=== PATIENT | male | born 1945 | race Caucasian/White ===

== ENCOUNTER 2016-11-25 14:31 | Inpatient (IN) | payer MEDICARE, BC ==
--- NOTE | ~2016-11-25 | CN ---
Consultation Report [facility] [address] [place]. [address] NAME: MADELAINE BANKS : 47 STATUS : ADM IN [facility]#: [id number] AGE: 70 ADM/REG DATE : 11/25/16 MR#: [id number] REPORT SERV DATE: 11/29/16 DICTATED BY: ENRIQUE GRIMM III DATE: 11/29/16 REPORT STATUS : Draft TRANSCRIBED BY: MODNataliya DATE: 11/29/16 CONSULTATION DATE OF CONSULTATION: REASON: Urinary retention. HISTORY OF PRESENT ILLNESS: Mr. Banks is a 70-year-old white male admitted to the hospital following a laparoscopic appendectomy for ruptured appendix. He has been unable to void postoperatively, attempts at catheterization by the staff were unsuccessful. I was asked to see the patient for Henry catheterization. PAST MEDICAL HISTORY: End-stage renal disease, cardiac arrhythmias. PAST SURGICAL HISTORY: Defibrillator placement, AV graft, umbilical hernia repair, cataract surgery. FAMILY HISTORY: Noncontributory. SOCIAL HISTORY: Negative for tobacco or alcohol. HOME MEDICATIONS: Reviewed. ALLERGIES: NO KNOWN DRUG ALLERGIES. PHYSICAL EXAMINATION: The patient is awake, there was blood at the urethral meatus, some. ASSESSMENT: Difficulty Henry placement. PLAN: We will take him to the operating room for cystoscopy and Henry placement. PH/MODNataliya Enrique Grimm III, M.D. / [id number] CC: MD Manish Cool M.D.
--- NOTE | ~2016-11-25 | OP ---
Record Of Operation [facility] [address] [place]. [address] NAME: MADELAINE BANKS : 47 STATUS : ADM IN [facility]#: [id number] AGE: 70 ADM/REG DATE : 11/25/16 MR#: [id number] REPORT SERV DATE: 11/29/16 DICTATED BY: ENRIQUE GRIMM III DATE: 11/29/16 REPORT STATUS : Draft TRANSCRIBED BY: MODL DATE: 11/29/16 DATE OF PROCEDURE: PREOPERATIVE DIAGNOSIS: Difficult Henry placement. POSTOPERATIVE DIAGNOSIS: Urethral stricture. PROCEDURE: Cystoscopy and urethral dilation. SURGEON: Enrique Grimm M.D. ANESTHESIA: General. SPECIMENS: None. DRAIN: 20-German [place]-tip catheter. INDICATION: Mr. Banks is a 70-year-old white male with postoperative urinary retention. The consent has been obtained for cystoscopy and possible urethral dilation. PROCEDURE: After consent was obtained, the patient was identified and was taken to the OR, and put to sleep. He was positioned in the low lithotomy position and prepped and draped in the usual fashion. The 20-German cystoscope was made ready and inserted into the urethral meatus along the course of the urethra. There was noted to be a false passage and there was a very small lumen noted at the 6 o'clock position consistent with a urethral stricture. I was able to pass a wire through this and into the bladder. The العلي sounds were then used to dilate from 16-German to 24-German. A 20-German cystoscopy was then performed. The prostatic urethra was opened. The bladder was trabeculated, consistent with chronic obstruction. The scope was removed. A [place] tip catheter was then advanced over the wire and into the bladder. The balloon was inflated to 10 mL. The wire was removed. The Henry was hooked up to gravity drainage. The patient was awakened and taken to recovery in stable condition. PH/MODL Enrique Grimm III, M.D. / [id number] CC: MD Manish Cool M.D.
--- NOTE | ~2016-11-25 | OP ---
Record Of Operation [facility] [address] [place]. [address] NAME: MADELAINE BANKS : 47 STATUS : ADM IN [facility]#: [id number] AGE: 70 ADM/REG DATE : 11/25/16 MR#: [id number] REPORT SERV DATE: 11/27/16 DICTATED BY: BERNABE KIMBALL DATE: 11/26/16 REPORT STATUS : Draft TRANSCRIBED BY: MODL DATE: 11/26/16 DATE OF PROCEDURE: 11/26/2016 PREOPERATIVE DIAGNOSIS: Acute appendicitis. POSTOPERATIVE DIAGNOSIS: Perforated appendicitis. PROCEDURE: Laparoscopic appendectomy. SURGEON: Bernabe Kimball MD. CHIEF RESIDENT: Isael Rosenbaum MD. ANESTHETIC: General with local. IV FLUIDS: 300 mL. ESTIMATED BLOOD LOSS: 25 mL. COMPLICATIONS: None known. COUNTS: Correct. SPECIMEN: Appendix. DESCRIPTION OF PROCEDURE: The patient was brought to the operating room and placed supine on the operating table. Anesthetic was administered. Endotracheal intubation was achieved. The abdomen was prepped and draped in standard sterile fashion. A time-out was held. Incision was made in vertical fashion few centimeters above the umbilicus. Optiview technique was used to gain access to the intraabdominal space. Pneumoperitoneum was established and laparoscope was inserted. Intraabdominal contents were inspected. The patient was placed in the head down and rolled to left position. Two 5-mm trocars were placed, one in the right upper quadrant and one in the lower midline. Blunt dissection was used to dissect the colon from the anterior abdominal wall and identified the appendix. This was further bluntly dissected from the surrounding fatty tissues. This was mobilized from the sidewall with blunt and sharp dissection. The appendiceal base was identified and a window was created at this base. Of note, prior to dissection, there was necrotic segment at the base that had a perforation. Once adequate defect was made at the base of the appendix, endoscopic stapler was inserted and the staple line was fired across the appendix below the perforated point. Next, the mesoappendix was divided with two-endoscopic staple loads and the specimen was placed in an Endopouch. Irrigation and drainage were conducted. A 19 round [place] drain was placed through the lower midline incision in the pelvis and right lower quadrant. This was secured with 2-0 nylon. The appendix was removed through the supraumbilical incision and passed off as specimen. The 12-mm incision was closed at the fascia level with 0 Vicryl and UR-6, and all incisions were closed with 4-0 Monocryl in subcuticular fashion. Sterile bandages were applied. The patient was extubated and Record Of Operation [facility] [address] [place]. [address] NAME: MADELAINE BANKS : 47 STATUS : ADM IN [facility]#: [id number] AGE: 70 ADM/REG DATE : 11/25/16 MR#: [id number] REPORT SERV DATE: 11/27/16 DICTATED BY: BERNABE KIMBALL QUINN DATE: 11/26/16 REPORT STATUS : Draft TRANSCRIBED BY: MOY DATE: 11/26/16 transferred to the recovery room in stable condition. DICTATED BY: Isael Rosenbaum MD ND/MOY Bernabe Kimball MD / [id number] CC: MD Manish Cool M.D.
--- NOTE | ~2016-11-25 | DS ---
Discharge Summary [facility] [address] [place]. [address] NAME: MADELAINE BANKS : 47 STATUS : DIS IN PAT#: [id number] AGE: 70 ADM/REG DATE : 11/25/16 MR#: [id number] REPORT SERV DATE: 12/11/16 DICTATED BY: BERNABE KIMBALL DATE: 12/10/16 REPORT STATUS : Draft TRANSCRIBED BY: MODNataliya DATE: 12/10/16 Data Collection from hospitalization DISCHARGE DIAGNOSIS(ES): 1. Acute perforated appendicitis. 2. Urethral stricture with difficult Henry placement. 3. End-stage renal disease. 4. Heart disease. CONSULTATIONS: Enrique Lewis M.D. PROCEDURES PERFORMED: 1. CT of the abdomen and pelvis without contrast, 11/25/2016. 2. Laparoscopic appendectomy, 11/26/2016. 3. Cystoscopy and urethral dilation, 11/27/2016. PATHOLOGY: Appendix appendectomy, suppurative appendicitis with peritonitis. MEDICATIONS: Lipitor 40 mg at bedtime, Coreg 6.25 mg twice daily, Dulcolax 5 mg twice daily, Colace 100 mg twice daily, Imdur 30 mg daily, Demadex 20 mg daily, and [place] 5/325 one or two every six hours as needed. CONDITION AT DISCHARGE: Upon discharge, he did appear to be doing well and had no complaints. DISPOSITION: He had been discharged home to continue a regular diet with activity as discussed. He was to follow up with myself in two weeks and was to call for the appointment. He was also to call Dr. Enrique Lewis for a followup appointment. HOSPITAL COURSE: This 70-year-old male had a myocardial infarction less than one year ago. He was status post defibrillator placement and end-stage renal disease. He was planning to start hemodialysis soon. He presented with a one-day history of abdominal pain. Initially, he had nausea and vomiting and then developed right-sided abdominal pain that progressively worsened. It was associated with fever, chills, diarrhea, and diaphoresis. He had no prior episodes. He had an umbilical hernia repair with mesh several years ago as well as cataract surgery. Within the last few months, his left upper extremity AV graft was created and this had subsequently failed. He was having no worsened shortness of breath or dyspnea on exertion. He denied any recent angina, and he had no orthopnea. He was admitted for further evaluation and treatment. Upon admission to the hospital, he had been placed on an n.p.o. diet. He did undergo the above CT of the abdomen and pelvis on the day of admission. He had tolerated this well and was transferred back to his room. Following the day of admission, his temperature was at 99.3, and his vital signs were stable. Surgery had been discussed with the patient. He was agreeable to proceed. He was then taken to the operating room where he did undergo the above laparoscopic appendectomy. He had tolerated this well and was transferred to the recovery room. On postop day #1, he was noted to have had a temperature up to 100, and his vital signs had remained stable. He was continued on antibiotics. His abdomen was noted to be soft and distended. He was also noted to be mildly diaphoretic. He was noted to have some urinary retention, and a bladder scan had Discharge Summary [address] [address] NAME: MADELAINE BANKS : 47 STATUS : DIS IN PAT#: [id number] AGE: 70 ADM/REG DATE : 11/25/16 MR#: [id number] REPORT SERV DATE: 12/11/16 DICTATED BY: BERNABE KIMBALL DATE: 12/10/16 REPORT STATUS : Draft TRANSCRIBED BY: MOY DATE: 12/10/16 revealed 400 mL. He was therefore seen in consultation by Dr. Enrique Lewis in regard to his urinary retention and he had recommended the patient undergo a cystoscopy and Henry placement and he was in agreement with this. He was then taken to the operating room where he did undergo the above cystoscopy with urethral dilation and Henry catheter placement. He had tolerated this well and was transferred to the recovery room. On 11/28/2016, he did appear to be doing well and had tolerated liquids and solids without difficulty. His pain control was improved as well. He was afebrile, and his vital signs had remained stable. He was encouraged to ambulate. He was continued on antibiotics. On postop day #2, he was noted to have poor pain control. He was begun on Colace. He also had a poor appetite noted. Some adjustments were made in his medications. His Henry catheter was to be left in place for seven days. On 11/30/2016, he had no acute events noted. He was afebrile, and his vital signs had remained stable. He had been given a Dulcolax suppository. He was continued on supportive care. His abdomen was noted to be mildly distended. On 12/01/2016, he did appear to be doing well and was noted to have a small bowel movement with suppository. Clinically, he was felt to be improving. He did continue to do well and was then discharged on 12/03/2016 with the above instructions. Information collected by: Sandeep Fam. I submit the above information as my discharge summary. RW/MODL Bernabe Kimball MD / [id number] CC: MD Manish Cool M.D. Paul Henson III, M.D.
--- NOTE | ~2016-11-25 | HP ---
History And Physical [address] [place]. [address] NAME: MADELAINE BANKS : 47 STATUS : DIS IN PAT#: [id number] AGE: 70 ADM/REG DATE : 11/25/16 MR#: [id number] REPORT SERV DATE: 12/09/16 DICTATED BY: BERNABE KIMBALL DATE: 11/26/16 REPORT STATUS : Draft TRANSCRIBED BY: MODL DATE: 11/26/16 DATE OF ADMISSION: 11/25/2016 REPORT TITLE: Consult Note CONSULT SERVICE: General Surgery. REASON FOR CONSULTATION: Appendicitis. HISTORY OF PRESENT ILLNESS: This patient is a 70-year-old male with myocardial infarction less than 1 year ago, who is status post defibrillator placement and end-stage renal disease, who is planning to start hemodialysis soon, presents with a one-day history of abdominal pain. Initially, he had nausea and vomiting, and then developed right-sided abdominal pain that progressively worsened. It is associated with fevers, chills, diarrhea, and diaphoresis. He has had no prior episodes. He had an umbilical hernia repair with mesh several years ago as well as cataract surgery. Within the last few months, the left upper extremity AV graft was created and this has subsequently failed. He is having no worsened shortness of breath or dyspnea on exertion. He denies any recent angina. He has no orthopnea. PAST MEDICAL HISTORY: As above. PAST SURGICAL HISTORY: 1. Umbilical hernia repair. 2. Cataract surgery. 3. Left upper extremity AV fistula creation and infection. FAMILY HISTORY: Noncontributory. SOCIAL HISTORY: No tobacco or alcohol use. MEDICATIONS: Reviewed in the chart. ALLERGIES: NO KNOWN DRUG ALLERGIES. REVIEW OF SYSTEMS: A 12-point review of systems was conducted and is negative, except as per HPI. PHYSICAL EXAMINATION: GENERAL: Awake, alert, and oriented x3, in no acute distress. HEENT: Normocephalic, atraumatic. Pupils are equal, round, and reactive to light. Extraocular movements intact. Moist mucous membranes. NECK: Trachea is in the midline. CHEST: Clear to auscultation bilaterally, except decreased in the left lower lobe. ABDOMEN: Obese, distended, exquisitely tender to palpation in the right lower quadrant at McBurney's point. History And Physical [address] [place]. [address] NAME: MADELAINE BANKS : 47 STATUS : DIS IN PAT#: [id number] AGE: 70 ADM/REG DATE : 11/25/16 MR#: [id number] REPORT SERV DATE: 12/09/16 DICTATED BY: BERNABE KIMBALL DATE: 11/26/16 REPORT STATUS : Draft TRANSCRIBED BY: MODL DATE: 11/26/16 RECTAL: Deferred. GENITALIA: Deferred. EXTREMITIES: Moves all. No edema. NEUROLOGIC: Grossly intact. IMAGING: CT of the abdomen and pelvis demonstrates periappendiceal inflammation with a dilated appendix and appendicolith at the base. PERTINENT LABORATORY DATA: White blood cell count 14.8, hematocrit 32, creatinine 4.7. ASSESSMENT AND PLAN: This patient has acute appendicitis in the setting of end-stage renal disease and heart disease. We will plan to admit him with IV fluid resuscitation and antibiotics initially and plan for appendectomy in the morning. We discussed his code status in totality, he wished to remain a full code. The risks, alternatives, and benefits of appendectomy were reviewed and this included, but was not limited to , thromboembolic event, infection, bleeding, injury to other organs, and requirement for further surgical interventions. He understood and agreed to proceed. NGUYEN/MOY Bernabe Kimball MD / [id number] CC: MD Manish Cool M.D.
[~2016-11-25 14:31] MED LIST: ASAB PO; CENTRUM PO; COREG12 PO; COREG6 PO; DEMA20 PO; IMDUR30 PO; LEVAQUIN750 MG PO; LIPITOR40 PO; M-CLEAR WC PO; P20 PO; PCET PO
[2016-11-25 16:02] LABS: BASOPHILS 0.1 %; BASOPHILS ABSOLUTE 0.02 10/3/uL (0.0-0.16); EOSINOPHILS 0.3 %; EOSINOPHILS ABSOLUTE 0.05 10/3/uL (0.0-0.53); HEMOGLOBIN 10.5 g/dL (13.6-17.8); IMMATURE GRANULOCYTES 0.3 %; IMMATURE GRANULOCYTES ABSOLUTE 0.04 10/3/uL (0.0-0.11); LYMPHOCYTES 15.8 %; LYMPHOCYTES ABSOLUTE 2.34 10/3/uL (0.67-4.30); MEAN CORPUS HGB CONC 32.8 g/dL (32.0-36.0); MEAN CORPUSCULAR HEMOGLOB 29.9 pg (26.0-34.0); MEAN CORPUSCULAR VOLUME 91.2 fL (80-100); MEAN PLATELET VOLUME 9.2 fL (9.2-13.0); MONOCYTES 6.2 %; MONOCYTES ABSOLUTE 0.92 10/3/uL (0.21-1.20); NEUTROPHILS 77.3 %; NEUTROPHILS ABSOLUTE 11.47 10/3/uL (2.02-8.40); PLATELET COUNT 214 10/3/uL (150-400); RBC DISTRIBUTION WIDTH 13.7 % (12.0-16.0); RED CELL COUNT 3.51 10/6/uL (4.7-6.1)
[2016-11-25 16:03] LABS: ER CBC TAT 0 Hrs 05 Mins; MANUAL DIFF NO %; WHITE BLOOD CELLS 14.8 10/3/uL (4.5-10.5)
[2016-11-25 16:17] LABS: A/G RATIO 0.7 (0.7-1.9); ALBUMIN 3.1 G/DL (3.5-5.0); ALKALINE PHOSPHATASE 76 U/L (45-117); BUN (BLOOD UREA NITROGEN) 55 MG/DL (6-23); CALCIUM, SERUM 8.7 MG/DL (8.5-10.4); CHLORIDE, SERUM 106 MMOL/L (96-112); CO2 (CARBON DIOXIDE) 25 MMOL/L (24-34); CREATININE 4.77 MG/DL (0.70-1.30); GFR AFRICAN AMERICAN 13 ML/MIN (>=60); GFR NON AFRICAN AMERICAN 12 ML/MIN (>=60); GLOBULIN 4.7 G/DL (2.5-4.1); GLUCOSE, SERUM 102 MG/DL (60-99); POTASSIUM, SERUM 4.7 MMOL/L (3.5-5.3); SGOT(AST) 16 U/L (5-40); SGPT(ALT) 15 U/L (5-65); SODIUM, SERUM 137 MMOL/L (135-148); TOTAL BILIRUBIN 0.8 MG/DL (0-1.2); TOTAL PROTEIN 7.8 G/DL (6.0-8.5)
[2016-11-25 17:32] LABS: ASCORBIC ACID (UR NOT ORDER) NEG (NEG); BILIRUBIN, URINE NEGATIVE (NEG); KETONE, URINE NEGATIVE (NEG); LEUKOCYTE ESTERASE(NOT OR TRACE (NEG); NITRITE (URINE) NEG (NEG); WBC (NOT ORDERED) (RFLEX) 5 (0-5)
[2016-11-25] MEDS ORDERED: VITAMIN D31000 UNIT PO (17:53)
[2016-11-25] MEDS ORDERED: DEMA20 PO (17:54)
[2016-11-25] MEDS ORDERED: COREG6 PO (17:54)
[2016-11-25] MEDS ORDERED: LIPITOR40 PO (17:54)
[2016-11-25] MEDS ORDERED: IMDUR30 PO (17:54)
[2016-11-25] MEDS ORDERED: ASAB PO (17:54)
[2016-11-26 06:33] LABS: BASOPHILS 0.2 %; BASOPHILS ABSOLUTE 0.02 10/3/uL (0.0-0.16); EOSINOPHILS 0.8 %; HEMOGLOBIN 9.7 g/dL (13.6-17.8); IMMATURE GRANULOCYTES 0.2 %; IMMATURE GRANULOCYTES ABSOLUTE 0.02 10/3/uL (0.0-0.11); LYMPHOCYTES 17.7 %; LYMPHOCYTES ABSOLUTE 2.16 10/3/uL (0.67-4.30); MANUAL DIFF NO %; MEAN CORPUS HGB CONC 32.3 g/dL (32.0-36.0); MEAN CORPUSCULAR HEMOGLOB 29.8 pg (26.0-34.0); MEAN PLATELET VOLUME 9.4 fL (9.2-13.0); MONOCYTES 6.6 %; MONOCYTES ABSOLUTE 0.81 10/3/uL (0.21-1.20); NEUTROPHILS 74.5 %; NEUTROPHILS ABSOLUTE 9.12 10/3/uL (2.02-8.40); PLATELET COUNT 189 10/3/uL (150-400); RBC DISTRIBUTION WIDTH 13.7 % (12.0-16.0); RED CELL COUNT 3.26 10/6/uL (4.7-6.1); WHITE BLOOD CELLS 12.2 10/3/uL (4.5-10.5)
[2016-11-26 06:50] LABS: ALBUMIN 2.8 G/DL (3.5-5.0); BUN (BLOOD UREA NITROGEN) 54 MG/DL (6-23); CALCIUM, SERUM 8.7 MG/DL (8.5-10.4); CHLORIDE, SERUM 106 MMOL/L (96-112); CO2 (CARBON DIOXIDE) 21 MMOL/L (24-34); CREATININE 4.59 MG/DL (0.70-1.30); GFR AFRICAN AMERICAN 14 ML/MIN (>=60); GFR NON AFRICAN AMERICAN 12 ML/MIN (>=60); GLUCOSE, SERUM 95 MG/DL (60-99); POTASSIUM, SERUM 4.4 MMOL/L (3.5-5.3); SODIUM, SERUM 136 MMOL/L (135-148)
[2016-11-26 06:52] LABS: PHOSPHORUS, SERUM 3.3 MG/DL (2.5-4.5)
[2016-11-27 07:06] LABS: HEMATOCRIT 29.6 % (40.0-51.0); HEMOGLOBIN 9.5 g/dL (13.6-17.8); MEAN CORPUS HGB CONC 32.1 g/dL (32.0-36.0); MEAN CORPUSCULAR HEMOGLOB 29.7 pg (26.0-34.0); MEAN CORPUSCULAR VOLUME 92.5 fL (80-100); MEAN PLATELET VOLUME 9.4 fL (9.2-13.0); PLATELET COUNT 163 10/3/uL (150-400); RBC DISTRIBUTION WIDTH 13.7 % (12.0-16.0); WHITE BLOOD CELLS 12.7 10/3/uL (4.5-10.5)
[2016-11-27 07:09] LABS: MANUAL DIFF YES %
[2016-11-27 07:26] LABS: LYMPHOCYTES 4 %; LYMPHOCYTES ABSOLUTE (CALC) 0.51 10/3/uL (0.67-4.30); MONOCYTES 4 %; MONOCYTES ABSOLUTE (CALC) 0.51 10/3/uL (0.21-1.20); NEUTROPHILS ABSOLUTE (CALC) 11.68 10/3/uL (2.02-8.40); SEGMENTED NEUTROPHIL (0) 92 %; TOTAL NUCLEATED CELLS 100
[2016-11-27 07:27] LABS: PLATELET ESTIMATE ADQ (ADEQUATE); RBC MORPHOLOGY NORM (NORMAL)
[2016-11-27 15:29] LABS: ASCORBIC ACID (UR NOT ORDER) NEG (NEG); BILIRUBIN, URINE NEGATIVE (NEG); KETONE, URINE NEGATIVE (NEG); LEUKOCYTE ESTERASE(NOT OR TRACE (NEG); WBC (NOT ORDERED) (RFLEX) 7 (0-5)
[2016-11-28 07:48] LABS: BASOPHILS 0 %; EOSINOPHILS 0 %; HEMATOCRIT 27.9 % (40.0-51.0); HEMOGLOBIN 9.2 g/dL (13.6-17.8); IMMATURE GRANULOCYTES 0.2 %; IMMATURE GRANULOCYTES ABSOLUTE 0.02 10/3/uL (0.0-0.11); LYMPHOCYTES 8.5 %; LYMPHOCYTES ABSOLUTE 0.76 10/3/uL (0.67-4.30); MEAN CORPUSCULAR HEMOGLOB 29.7 pg (26.0-34.0); MEAN PLATELET VOLUME 9.4 fL (9.2-13.0); MONOCYTES 4.5 %; NEUTROPHILS 86.8 %; NEUTROPHILS ABSOLUTE 7.75 10/3/uL (2.02-8.40); PLATELET COUNT 180 10/3/uL (150-400); RBC DISTRIBUTION WIDTH 13.5 % (12.0-16.0); WHITE BLOOD CELLS 8.9 10/3/uL (4.5-10.5)
[2016-11-28 07:49] LABS: MANUAL DIFF NO %
[2016-11-28 07:59] LABS: CALCIUM, SERUM 8.3 MG/DL (8.5-10.4); CHLORIDE, SERUM 106 MMOL/L (96-112); CO2 (CARBON DIOXIDE) 22 MMOL/L (24-34); POTASSIUM, SERUM 4.5 MMOL/L (3.5-5.3); SODIUM, SERUM 138 MMOL/L (135-148)
[2016-11-28 08:02] LABS: BUN (BLOOD UREA NITROGEN) 61 MG/DL (6-23); GFR AFRICAN AMERICAN 11 ML/MIN (>=60); GFR NON AFRICAN AMERICAN 9 ML/MIN (>=60); GLUCOSE, SERUM 202 MG/DL (60-99)
[2016-11-29 07:03] LABS: BASOPHILS 0.1 %; BASOPHILS ABSOLUTE 0.01 10/3/uL (0.0-0.16); EOSINOPHILS 0 %; HEMOGLOBIN 9.9 g/dL (13.6-17.8); IMMATURE GRANULOCYTES 0.3 %; IMMATURE GRANULOCYTES ABSOLUTE 0.04 10/3/uL (0.0-0.11); LYMPHOCYTES 7.8 %; LYMPHOCYTES ABSOLUTE 1.02 10/3/uL (0.67-4.30); MEAN CORPUSCULAR HEMOGLOB 29.6 pg (26.0-34.0); MEAN CORPUSCULAR VOLUME 89.6 fL (80-100); MEAN PLATELET VOLUME 9.5 fL (9.2-13.0); MONOCYTES 6.7 %; MONOCYTES ABSOLUTE 0.88 10/3/uL (0.21-1.20); NEUTROPHILS 85.1 %; NEUTROPHILS ABSOLUTE 11.19 10/3/uL (2.02-8.40); PLATELET COUNT 212 10/3/uL (150-400); RBC DISTRIBUTION WIDTH 13.5 % (12.0-16.0); RED CELL COUNT 3.35 10/6/uL (4.7-6.1)
[2016-11-29 07:04] LABS: MANUAL DIFF NO %; WHITE BLOOD CELLS 13.1 10/3/uL (4.5-10.5)
[2016-11-29 07:10] LABS: CALCIUM, SERUM 8.3 MG/DL (8.5-10.4); CHLORIDE, SERUM 108 MMOL/L (96-112); CO2 (CARBON DIOXIDE) 20 MMOL/L (24-34); CREATININE 5.85 MG/DL (0.70-1.30); GFR AFRICAN AMERICAN 10 ML/MIN (>=60); GFR NON AFRICAN AMERICAN 9 ML/MIN (>=60); POTASSIUM, SERUM 4.6 MMOL/L (3.5-5.3); SODIUM, SERUM 137 MMOL/L (135-148)
[2016-11-29 07:12] LABS: BUN (BLOOD UREA NITROGEN) 73 MG/DL (6-23); GLUCOSE, SERUM 161 MG/DL (60-99)
[2016-12-03 06:25] LABS: BASOPHILS 0.5 %; BASOPHILS ABSOLUTE 0.05 10/3/uL (0.0-0.16); EOSINOPHILS 4.8 %; EOSINOPHILS ABSOLUTE 0.46 10/3/uL (0.0-0.53); HEMATOCRIT 28.9 % (40.0-51.0); HEMOGLOBIN 9.7 g/dL (13.6-17.8); IMMATURE GRANULOCYTES 1.9 %; IMMATURE GRANULOCYTES ABSOLUTE 0.18 10/3/uL (0.0-0.11); LYMPHOCYTES 24.5 %; LYMPHOCYTES ABSOLUTE 2.34 10/3/uL (0.67-4.30); MEAN CORPUS HGB CONC 33.6 g/dL (32.0-36.0); MEAN CORPUSCULAR HEMOGLOB 29.8 pg (26.0-34.0); MEAN CORPUSCULAR VOLUME 88.7 fL (80-100); MEAN PLATELET VOLUME 9.4 fL (9.2-13.0); MONOCYTES 6.9 %; MONOCYTES ABSOLUTE 0.66 10/3/uL (0.21-1.20); NEUTROPHILS 61.4 %; NEUTROPHILS ABSOLUTE 5.86 10/3/uL (2.02-8.40); PLATELET COUNT 268 10/3/uL (150-400); RBC DISTRIBUTION WIDTH 13.9 % (12.0-16.0); RED CELL COUNT 3.26 10/6/uL (4.7-6.1); WHITE BLOOD CELLS 9.6 10/3/uL (4.5-10.5)
[2016-12-03 06:26] LABS: MANUAL DIFF NO %
[2016-12-03 06:38] LABS: CALCIUM, SERUM 8.6 MG/DL (8.5-10.4); CHLORIDE, SERUM 107 MMOL/L (96-112); CO2 (CARBON DIOXIDE) 19 MMOL/L (24-34); POTASSIUM, SERUM 4.1 MMOL/L (3.5-5.3); SODIUM, SERUM 137 MMOL/L (135-148)
[2016-12-03 06:39] LABS: BUN (BLOOD UREA NITROGEN) 86 MG/DL (6-23); CREATININE 7.18 MG/DL (0.70-1.30); GFR AFRICAN AMERICAN 8 ML/MIN (>=60); GFR NON AFRICAN AMERICAN 7 ML/MIN (>=60); GLUCOSE, SERUM 75 MG/DL (60-99)
[2016-12-03] MEDS ORDERED: NORCO1 TA1 PO (12:41)
== END 2016-12-03 15:03 | disposition home or self-care (01) | DRG 338 ==
LOC: ER 14:31 → 5SO 18:21
PROVIDERS: Emergency Medicine; Physician Assistant; Student in an Organized Health Care Education/Training Program; Surgery; Urology
PROC: 0T7D8ZZ Dilation of Urethra, Via Natural or Artificial Opening Endoscopic (ICD-10-PCS; 2016-11-26)
PROC: 0DTJ4ZZ Resection of Appendix, Percutaneous Endoscopic Approach (ICD-10-PCS; principal; 2016-11-26 16:00)
DX: K35.2 Acute appendicitis with generalized peritonitis (principal); N18.6 End stage renal disease; I50.9 Heart failure, unspecified; Z99.2 Dependence on renal dialysis; Z79.82 Long term (current) use of aspirin; Z79.899 Other long term (current) drug therapy; R33.8 Other retention of urine; N35.9 Urethral stricture, unspecified; I25.2 Old myocardial infarction; Z95.810 Presence of automatic (implantable) cardiac defibrillator
CPT/HCPCS: 74174; 74176; 80048; 80053; 80069; 81001; 82570; 82962; 83690; 85025; 87040; 88304; 93005; 96365; 99291; A9270-GY; C1769; J0330; J2250; J2270; J2405; J2543; J2710; J3010